=== PATIENT | female | born 1985 | race Asian ===

== ENCOUNTER 2016-11-25 07:25 | Inpatient (IN) | payer OTHER ==
[2016-11-25] MEDS ORDERED: ELECTROLYTE-148 SOLN 500 ML IV ONE (07:45)
[2016-11-25 08:15] VITALS: BMI 25.4
[2016-11-25] MEDS ORDERED: CITRIC ACID/SODIUM CITRATE 30 ML UNIT-DOSE CUP PO ONE (08:19)
[2016-11-25] MEDS ORDERED: PROPOFOL 20 ML ONE (08:27)
[2016-11-25] MEDS ORDERED: ePHEDrine SULFATE 50 MG/1 ML AMPULE ONE (08:27)
[2016-11-25] MEDS ORDERED: SUCCINYLCHOLINE CHLORIDE 200 MG/10 ML VIAL ONE (08:27)
--- NOTE | 2016-11-25 08:28 | HP ---
Past Medical History - Primary Care Physician PCP:: Carolynn aJcobs - Admission Chief Complaint: 31 yrs , 39 weeks , previous c/section , , requests for repeat c/section History of Present Illness: [facility] , uneventful. Work Up : B Pos, , Rpr nr, Hbsag neg, Rubella pos, Hgb A1A2, sickle neg , HIV neg, , GBs neg, 1 Hr GTT 117, Pap NILM .Quantiferon neg NT screen neg, Modified Sequential neg. Serila grwoth sono were done by MFM reviewed History Source: Patient, Medical Record Limitations to Obtaining History: No Limitations - Past Medical History BASKETBALL ASSEMBLER: No: CVA, Migraine, Seizure Cardiovascular: No: GA Pulmonary: No: Asthma Gastrointestinal: Yes: Constipation Renal/: No: UTI ...: 3 ...Para: 1 ...Term: 1 (12/27/2014 primary LFTC/section 40.2 wks wks ) ...: 0 ...Spon : 1 (07/2015 ) ...Induced : 0 ...Multiple Gestation: 0 ...LMP: 02/26/16 ... Weeks Gestation by Dates: 39.0 ...EDC by Dates: 12/02/16 ...EDC by Sono: 12/02/16 Heme/Onc: Yes: Anemia Infectious Disease: No: HIV, MRSA, STD's Psych: No: Addictions, Anxiety, Bipolar, Depression, Panic - Past Surgical History Past Surgical History: Yes: (12/27/14 primary c/s) Hx Myomectomy: No Hx Transabdominal Cerclage: No - Smoking History Smoking history: Never smoked Have you smoked in the past 12 months: No - Alcohol/Substance Use Hx Alcohol Use: No History of Substance Use: reports: None - Social History History of Recent Travel: No Home Medications - Allergies Allergies/Adverse Reactions: Allergies Allergy/AdvReac Type Severity Reaction Status Date / Time No Known Allergies Allergy Verified 11/25/16 08:17 - Home Medications Home Medications: Ambulatory Orders Ferrous Sulfate [Feosol] 325 mg PO DAILY 11/25/16 Vitamins (Sjr) - 1 tab PO DAILY 11/25/16 Physical Exam - Maternity Vital Signs: Vital Signs Temperature 97.8 F 11/25/16 08:12 Pulse Rate 94 H 11/25/16 08:12 Respiratory Rate 20 11/25/16 08:12 Blood Pressure 113/68 11/25/16 08:12 O2 Sat by Pulse Oximetry (%) Constitutional: Yes: Well Nourished, No Distress Eyes: Yes: WNL HENT: Yes: WNL, Normocephalic Neck: Yes: WNL Cardiovascular: Yes: WNL, Regular Rate and Rhythm Lungs: Clear to auscultation Breast(s): Yes: Other (not examined) - Abdominal Exam/OB Fundal Height: 38 Number of Fetuses: Single Presentation: Vertex Regularity: Irregular Intensity: Unaware Monitor Mode: External Heart Rate (range): 130-140 Heart Rate Location: [facility] Category: I Accelerations: Uniform Decelerations: None - Vaginal Exam/OB Vaginal Bleediing: No Dilatation (cm): close Effacement (%): unefface Amniotic Membrane Status: Intact Presentation: Vertex/Position Station: -3 - Physical Exam Musculoskeletal: Yes: WNL Extremities: Yes: WNL. No: Calf Tenderness Edema: Yes Edema: LLE: 1+, RLE: 1+ Deep Tendon Reflex Grade: Normal +2 ...Motor Strength: WNL Psychiatric: Yes: WNL, Alert, Oriented - Labs Lab Results: Laboratory Tests 06/29/15 11/23/16 11/23/16 16:40 08:10 08:10 WBC 6.7 D Hgb 12.4 Hct 36.5 Plt Count 198 D Neutrophils % 67.5 Lymphocytes % 26.2 Monocytes % 5.6 Eosinophils % 0.6 D Basophils % 0.1 INR Sodium Potassium Chloride Carbon Dioxide BUN Creatinine Random Glucose Calcium Total Bilirubin AST ALT Urine Protein Negative Urine Ketones Negative Urine Nitrite Negative Ur Leukocyte Esterase 1+ H Urine RBC 1 Urine WBC 3 Ur Epithelial Cells Moderate Urine Bacteria Rare RPR Titer 11/23/16 11/23/16 11/23/16 08:10 08:10 08:10 WBC Hgb Hct Plt Count Neutrophils % Lymphocytes % Monocytes % Eosinophils % Basophils % INR 0.83 L Sodium 139 Potassium 4.2 Chloride 105 Carbon Dioxide 23 BUN 8 Creatinine 0.5 L D Random Glucose 72 L Calcium 8.1 L Total Bilirubin 0.2 AST 20 D ALT 25 Urine Protein Urine Ketones Urine Nitrite Ur Leukocyte Esterase Urine RBC Urine WBC Ur Epithelial Cells Urine Bacteria RPR Titer Nonreactive Problem List - Problems (1) with 39 completed weeks gestation Code(s): Z3A.39 - 39 WEEKS GESTATION OF (2) Previous section Code(s): Z98.891 - HISTORY OF UTERINE SCAR FROM PREVIOUS SURGERY Assessment/Plan 31 yrs , previous c/section , requests for Repeat c/section
[2016-11-25] MEDS ORDERED: ELECTROLYTE-148 SOLN 1,000 ML IV SCH (08:30)
[2016-11-25] MEDS ORDERED: morphine SULFATE/Preservative Free 0.5 MG/ML (1cc Syringe) SPIN ONE (09:10)
--- NOTE | 2016-11-25 09:43 | CONSULT ---
- Maternal History Mother's Age: 32 Status: 3 Mother's Blood Type: B +VE HBSAG: Negative Date: 04/16/16 RPR: Negative Date: 04/16/16 Group B Strep: Negative HIV: Negative [place] Data - Admission Admission Time: 07:25 Date of Delivery: 11/25/16 Wks Gestation by Dates: 39.0 Wks Gestation by Sono: 39.0 Infant Gender: Male Type of Delivery: Repeat C/S Score @1 Minute: 9 score @ 5 Minutes: 9 Level 2, History and Physical - Vital Signs: Vital Signs Temperature 97.8 F 11/25/16 08:12 Pulse Rate 94 H 11/25/16 08:12 Respiratory Rate 20 11/25/16 08:12 Blood Pressure 113/68 11/25/16 08:12 O2 Sat by Pulse Oximetry (%) General Appearance: Yes: No Abnormalities, Well flexed, Full ROM, Spontaneous movements, [place] Skin: Yes: No Abnormalities Head: Yes: No Abnormalities Eyes: Yes: No Abnormalities Ears: Yes: No Abnormalities Nose: Yes: No Abnormalities Mouth: Yes: No Abnormalities Chest: Yes: No Abnormalities Lungs/Respiratory: Yes: No Abnormalities, Bilateral good air entry Cardiac: Yes: No Abnormalities Abdomen: Yes: No Abnormalities, Umb Ves, 2 artery 1 vein Gastrointestinal: Yes: No Abnormalities Genitalia: No Abnormalities Anus: Yes: No Abnormalities Extremities: Yes: No Abnormalities Femoral Pulse: Strong Spine: Yes: No Abnormalities Neuro: Yes: No Abnormalities Cry: Yes: Strong Assessment/Plan Attended Rpt C/s at the request of OB PNL- nl , GBS- neg Infant cried soon after suctioned/ dried cord 3V score 9/9 RNBC Watch for resp distress
[2016-11-25] MEDS ORDERED: IBUPROFEN 800 MG/8 ML IJ IVPB PRN (10:04)
[2016-11-25] MEDS ORDERED: METHYLERGONOVINE MALEATE 0.2 MG/1 ML AMP IM PRN (10:04)
[2016-11-25] MEDS ORDERED: ONDANSETRON 4 MG/2 ML VIAL IVPB PRN (10:13)
--- NOTE | 2016-11-25 10:14 | PN ---
Delivery - Delivery Section: Repeat, Low Flap Transverse (39 week, previous c/s, requests for c/s) Type of Anesthesia: Spinal Episiotomy/Laceration: None EBL (cc): 500 (solo out put 100 ml mone color ) Delivery, Single - Stages of Labor Date of Delivery: 11/25/16 Time of Delivery: 09:24 Time Placenta Delivered: 09:25 Placenta: Yes: Manual Removal, Uterine Exploration - Condition of Infant Procedure Tech/Radiology Equipment Servicer Present: Yes Name: Tino Maddox Infant Gender: Male Weight: 7 lb 11 oz Position: Right, OT Total Hours ROM (Hrs/Mins): 0hrs 2min - 1 Minute Total Score: 9 5 Minutes Total Score: 9 - Reader Feeding Plan Initial Plan: Exclusive throughout hospitalization Remarks - Remarks Remarks: 31 yrs , . 39 weeks, previous c/s, requests , repeat c/s PNC at [address] [place] [address] GBS neg. course uneventful. Intraop course uneventful.
--- NOTE | 2016-11-25 10:18 | OP ---
Operative Note - Note: Operative Date: 11/25/16 Pre-Operative Diagnosis: 39 weeks, previous c/s, requests for repeat c/s Operation: Repeat LFTC/Section Findings: 9.24 am, Baby Boy, Vx ROT position , 9/9, Wt 7'11" Both Tubes & ovaries normal . Dr Maddox present in the OR Surgeon: Carolynn Jacobs Bolt Header: Elie Ojeda Anesthesiologist/DOCTOR PODIATRIC MEDICINE: Jacky Norris Anesthesia: Spinal Specimens Removed: placenta. cord blood Estimated Blood Loss (mls): 500 Drains, Volume Out (mls): 100 (mone color , solo out put ) Fluid Volume Replaced (mls): 2,000 (IV Ancef 1 gm ivpb ) Operative Report Dictated: Yes
[2016-11-25] MEDS: D5W-LR W/ 20 UNITS OXYTOCIN 1,000 ML IV SCH ×2 (11:30→17:44)
--- NOTE | 2016-11-25 16:21 | OP ---
DATE OF OPERATION: 11/25/2016 PREOPERATIVE DIAGNOSIS: A 39 weeks , previous section, request for repeat section. OPERATION DONE: Repeat low flap transverse section. SURGEON: Carolynn Jacobs MD CUSTOMER COMPLAINT SERVICE SUPERVISOR: SHANNON Vogel ANESTHESIOLOGIST: Jacky Norris MD ANESTHESIA: Spinal. FINDINGS: This is a 31-year-old, 3, para 1-0-1-1, with 39 weeks , admitted for a repeat section. She was not in labor but she was mague. Her cervix was closed. PROCEDURE: Patient was taken to the operating room table and abdomen was shaved. Toscano catheter was placed. Spinal anesthesia was given. She was placed in the supine position. Abdomen was painted and draped in the usual manner. Pfannenstiel incision was made through the previous scar, skin and subcutaneous tissue, anterior rectus sheath was incised transversely. Bleeding points were clamped and cauterized. Rectus muscle was from the rectus sheath. Parietal peritoneum was opened vertically. Lower flap bladder peritoneum was incised transversely. Bladder was pushed down. Lower uterine segment was isolated and it was thin. Incision was made in lower uterine segment and incised transversely and amniotic fluid was clear. Baby was delivered from ROT position at 9:24 a.m. The baby's was 9/9, baby boy. Weight was 7.11 ounces. Cord was clamped, cut, cord blood was collected. Dr. Maddox, the drill press operator numerical control, was present in the operating room. Placenta was removed completely with the membranes and then uterine incision was closed in 2 layers, first layer was a continuous locking with a Biosyn 0 suture, second was closed with a Biosyn 0 suture continuous suture and vertical mattress sutures were taken. Bladder peritoneum also was closed with Biosyn 0 suture. Hemostasis was verified. Both tube and ovary were normal. Irrigation was done. Sponge, instrument, needle count was correct. Then closure of the abdomen was done. Parietal peritoneum was closed with Vicryl O suture. Muscles were approximated together with interrupted Vicryl 0 sutures. Anterior rectus sheath was closed with Vicryl 0 suture. Before that, the flaps of the anterior rectus sheath were checked for hemostasis. Subcutaneous tissue was mobilized from the skin and hemostasis was achieved. A few interrupted sutures were taken in the subcutaneous tissue with a Vicryl 0 suture. The skin was approximated with jf. Patient tolerated the procedure well. Then she was transferred to the recovery room in stable condition. Estimated blood loss was 500 mL. Urine output was 100 mL, mone colored, intraoperatively. She received 1 g of IV Ancef prior to the incision. Blood clots were removed from the vagina prior to moving her to the recovery room. Jovon MENDEZ/[id number] MTDD
[2016-11-25] MEDS: CEFAZOLIN (PRE-DOCKED) 50 ML IVPB SCH (17:43)
[2016-11-26] MEDS: CEFAZOLIN (PRE-DOCKED) 50 ML IVPB SCH ×2 (01:14→09:01)
[2016-11-26] MEDS: D5W-LR W/ 20 UNITS OXYTOCIN 1,000 ML IV SCH ×2 (04:28→18:56)
[2016-11-26] MEDS: SIMETHICONE 80 MG TAB.CHEW (FP) PO PRN ×3 (07:49→21:43)
[2016-11-26] MEDS: ACETAMINOPHEN 325 MG TABLET (FP) PO PRN ×3 (07:49→21:44)
[2016-11-26] MEDS: IBUPROFEN 600 MG TABLET (FP) PO PRN ×3 (07:52→21:43)
--- NOTE | 2016-11-26 08:21 | PN ---
Progress Note (short form) - Note Progress Note: pod 1 doing well, has mild low abdominal pain Last Vital Signs Temp Pulse Resp BP Pulse Ox 97.6 F 73 20 114/72 100 11/26/16 05:24 11/26/16 05:24 11/26/16 08:00 11/26/16 05:24 11/25/16 11:00 abdomen soft, no distension, no cva incision dry, clean no calf tenderness plan ambulate, cbc advance diet
[2016-11-26 08:51] LABS: BASOPHIL 0.1 % (0-2.0); EOSINOPHIL 0.4 % (0-4.5); MCH 30.8 pg (25.7-33.7); MCHC 33.6 g/dl (32.0-36.0); MEAN CELL VOLUME 91.7 fl (80-96); MEAN PLT VOLUME 8.7 fl (7.5-11.1); NEUTROPHILS 80.1 % (42.8-82.8); PLATELET COUNT 196 K/MM3 (134-434); WHITE BLOOD COUNT 9.2 K/mm3 (4.0-10.0)
[2016-11-26] MEDS: PRENATAL VITAMINS W/ FOLIC ACID TABLET (FP) PO SCH (09:01)
[2016-11-26] MEDS: ENOXAPARIN NA (PORCINE) 40 MG/0.4 ML DISP.SYRIN SQ SCH (09:02)
--- NOTE | 2016-11-26 09:14 | PN ---
Progress Note, Physician Chief Complaint: s/p c section History of Present Illness: under spinal anesthesia post op day one - Current Medication List Current Medications: Active Medications Acetaminophen (Tylenol -) 650 mg PO Q4H PRN PRN Reason: FEVER OR PAIN Last Admin: 11/26/16 07:49 Dose: 650 mg Bisacodyl (Dulcolax Suppository -) 10 mg RC PRN PRN PRN Reason: CONSTIPATION Diphenhydramine HCl (Benadryl Injection -) 25 mg IVPUSH Q4H PRN PRN Reason: Pruritis Last Admin: 11/25/16 16:34 Dose: 25 mg Enoxaparin Sodium (Lovenox -) 40 mg SQ DAILY SHIVA Last Admin: 11/26/16 09:02 Dose: 40 mg Ferrous Sulfate (Feosol -) 325 mg PO BID [facility] Cefazolin Sodium (Ancef 1gm Ivpb (Pre-Docked)) 50 mls @ 100 mls/hr IVPB Q8H-IV SHIVA Stop: 11/26/16 10:29 Last Admin: 11/26/16 09:01 Dose: 100 mls/hr Dextrose/Lactated Ringer's (Pitocin 20 Units In D5-Lr -) 1,000 mls @ 125 mls/ hr IV ASDIR SHIVA Last Admin: 11/26/16 04:28 Dose: 125 mls/hr Ibuprofen (Motrin -) 600 mg PO Q4H PRN PRN Reason: PAIN Last Admin: 11/26/16 07:52 Dose: 600 mg Ibuprofen (Caldolor Injection -) 800 mg IVPB Q8H PRN PRN Reason: PAIN OR FEVER Last Admin: 11/26/16 02:01 Dose: 800 mg Methylergonovine Maleate (Methergine Injection -) 0.2 mg IM Q4H PRN PRN Reason: Excessive Bleeding (L&D) Oxycodone HCl (Roxicodone -) 5 mg PO Q4H PRN PRN Reason: PAIN LEVEL 1-5 Oxycodone HCl (Roxicodone -) 10 mg PO Q4H PRN PRN Reason: PAIN LEVEL 6-10 Multivit/Folic Acid/Iron ( Vitamins (Sjr) -) 1 tab PO DAILY SHIVA Last Admin: 11/26/16 09:01 Dose: 1 tab Senna/Docusate Sodium (Pericolace -) 2 tablet PO HS PRN PRN Reason: CONSTIPATION Simethicone (Mylicon -) 80 mg PO Q4H PRN PRN Reason: GAS Last Admin: 11/26/16 07:49 Dose: 80 mg - Objective Vital Signs: Vital Signs Temperature 97.9 F 11/26/16 08:22 Pulse Rate 67 11/26/16 08:22 Respiratory Rate 20 11/26/16 08:22 Blood Pressure 113/55 11/26/16 08:22 O2 Sat by Pulse Oximetry (%) 100 11/25/16 11:00 Constitutional: Yes: Well Nourished Cardiovascular: Yes: WNL Respiratory: Yes: WNL Gastrointestinal: Yes: WNL Neurological: Yes: WNL Labs: CBC, BMP 11/26/16 07:55 Assessment/Plan NO adverse effect of the anesthetic, no headache, backache, nausea or vomiting. Dept of anesthesia will sign off care at this time
[2016-11-26] MEDS ORDERED: BISACODYL 10 MG SUPP.RECT RC PRN (10:04)
[2016-11-26] MEDS: FERROUS SO4 325 MG TABLET (FP) PO SCH (21:43)
[2016-11-26] MEDS: oxyCODONE HCL 5 MG TABLET PO PRN (21:43)
[2016-11-26] MEDS: SENNOSIDES/DOCUSATE COMBO (SENNA PLUS) TABLET (UD) PO PRN (21:44)
[2016-11-27] MEDS: ACETAMINOPHEN 325 MG TABLET (FP) PO PRN ×4 (07:06→21:08)
[2016-11-27] MEDS: SIMETHICONE 80 MG TAB.CHEW (FP) PO PRN ×2 (07:06→15:56)
[2016-11-27] MEDS: oxyCODONE HCL 5 MG TABLET PO PRN ×3 (07:07→15:57)
--- NOTE | 2016-11-27 09:18 | PN ---
Progress Note (short form) - Note Progress Note: pod 2 , doing well, ambulating CBC, BMP 11/26/16 07:55 Last Vital Signs Temp Pulse Resp BP Pulse Ox 97.6 F 65 18 107/70 100 11/27/16 09:11 11/27/16 09:11 11/27/16 09:11 11/27/16 09:11 11/25/16 11:00 abdomen soft, no distension, no cva incision dry, healing well no calf tenderness impression pod 2 tolorating diet, ambulating plan cont post op care. cbc in am
[2016-11-27] MEDS: FERROUS SO4 325 MG TABLET (FP) PO SCH ×2 (11:22→21:08)
[2016-11-27] MEDS: PRENATAL VITAMINS W/ FOLIC ACID TABLET (FP) PO SCH (11:22)
[2016-11-27] MEDS: ENOXAPARIN NA (PORCINE) 40 MG/0.4 ML DISP.SYRIN SQ SCH (11:22)
[2016-11-27] MEDS: IBUPROFEN 600 MG TABLET (FP) PO PRN ×2 (15:58→21:10)
--- NOTE | 2016-11-27 16:46 | PN ---
Post Progress Note - Subjective Subjective: c/o pain scale -8 voiding without difficulty Post Day: 2 Type of Delivery: Repeat C/S Vital Signs: Vital Signs Temperature 97.6 F 11/27/16 09:11 Pulse Rate 65 11/27/16 09:11 Respiratory Rate 18 11/27/16 09:11 Blood Pressure 107/70 11/27/16 09:11 O2 Sat by Pulse Oximetry (%) 100 11/25/16 11:00 Breast Exam: Yes: Soft, Other (BF ). No: Engorged Uterus: Yes: Fundus Firm, Fundus below umbilicus Incision: Yes: [place] intact. No: Redness, Oozing Abdomen/GI: Yes: Abdomen soft, Passing flatus (bn not done ), Tolerating PO ( diet ). No: Abdominal Distention, Tender Lochia: Yes: Rubra Lochia, amount: Moderate Extremities: Yes: Calves non-tender Perineum: Yes: Intact Activity: Ambulating - Labs Labs: CBC WBC 9.2 K/mm3 (4.0-10.0) D 11/26/16 07:55 RBC 3.76 M/mm3 (3.60-5.2) 11/26/16 07:55 Hgb 11.6 GM/dL (10.7-15.3) 11/26/16 07:55 Hct 34.5 % (32.4-45.2) 11/26/16 07:55 MCV 91.7 fl (80-96) 11/26/16 07:55 MCHC 33.6 g/dl (32.0-36.0) 11/26/16 07:55 RDW 13.0 % (11.6-15.6) 11/26/16 07:55 Plt Count 196 K/MM3 (134-434) 11/26/16 07:55 MPV 8.7 fl (7.5-11.1) 11/26/16 07:55 Neutrophils % 80.1 % (42.8-82.8) 11/26/16 07:55 Lymphocytes % 15.9 % (8-40) D 11/26/16 07:55 Monocytes % 3.5 % (3.8-10.2) L 11/26/16 07:55 Eosinophils % 0.4 % (0-4.5) 11/26/16 07:55 Basophils % 0.1 % (0-2.0) 11/26/16 07:55 Problem List - Problems (1) with 39 completed weeks gestation Code(s): Z3A.39 - 39 WEEKS GESTATION OF (2) Previous section Code(s): Z98.891 - HISTORY OF UTERINE SCAR FROM PREVIOUS SURGERY Assessment/Plan stable plan ct po care
[2016-11-27] MEDS: SENNOSIDES/DOCUSATE COMBO (SENNA PLUS) TABLET (UD) PO PRN (21:11)
[2016-11-28] MEDS: IBUPROFEN 600 MG TABLET (FP) PO PRN ×4 (03:27→21:10)
[2016-11-28] MEDS: SIMETHICONE 80 MG TAB.CHEW (FP) PO PRN ×4 (03:27→21:09)
[2016-11-28] MEDS: ACETAMINOPHEN 325 MG TABLET (FP) PO PRN ×4 (03:28→21:10)
[2016-11-28 08:21] LABS: BASOPHIL 0.2 % (0-2.0); EOSINOPHIL 2.3 % (0-4.5); MCH 30.7 pg (25.7-33.7); MCHC 33.5 g/dl (32.0-36.0); MEAN CELL VOLUME 91.5 fl (80-96); MEAN PLT VOLUME 8.2 fl (7.5-11.1); NEUTROPHILS 69.1 % (42.8-82.8); PLATELET COUNT 220 K/MM3 (134-434); RDW 13.2 % (11.6-15.6)
--- NOTE | 2016-11-28 09:59 | PN ---
Post Progress Note - Subjective Subjective: complains of pain scale 5-6/10 Post Day: 3 Type of Delivery: Repeat C/S Vital Signs: Vital Signs Temperature 97.9 F 11/27/16 22:00 Pulse Rate 87 11/27/16 22:00 Respiratory Rate 18 11/27/16 22:00 Blood Pressure 118/69 11/27/16 22:00 O2 Sat by Pulse Oximetry (%) 100 11/25/16 11:00 Breast Exam: Yes: Soft, Other (bf& bottle feeding ). No: Engorged Uterus: Yes: Fundus Firm, Fundus below umbilicus Incision: Yes: [place] intact. No: Redness, Oozing Abdomen/GI: Yes: Abdomen soft, Passing flatus, Tolerating PO (done ). No: Abdominal Distention, Tender Lochia: Yes: Rubra Lochia, amount: Moderate Extremities: Yes: Calves non-tender Perineum: Yes: Intact Activity: Ambulating - Labs Labs: CBC WBC 6.0 K/mm3 (4.0-10.0) D 11/28/16 07:30 RBC 3.72 M/mm3 (3.60-5.2) 11/28/16 07:30 Hgb 11.4 GM/dL (10.7-15.3) 11/28/16 07:30 Hct 34.1 % (32.4-45.2) 11/28/16 07:30 MCV 91.5 fl (80-96) 11/28/16 07:30 MCHC 33.5 g/dl (32.0-36.0) 11/28/16 07:30 RDW 13.2 % (11.6-15.6) 11/28/16 07:30 Plt Count 220 K/MM3 (134-434) 11/28/16 07:30 MPV 8.2 fl (7.5-11.1) 11/28/16 07:30 Neutrophils % 69.1 % (42.8-82.8) 11/28/16 07:30 Lymphocytes % 22.6 % (8-40) D 11/28/16 07:30 Monocytes % 5.8 % (3.8-10.2) 11/28/16 07:30 Eosinophils % 2.3 % (0-4.5) D 11/28/16 07:30 Basophils % 0.2 % (0-2.0) 11/28/16 07:30 Problem List - Problems (1) with 39 completed weeks gestation Code(s): Z3A.39 - 39 WEEKS GESTATION OF (2) Previous section Code(s): Z98.891 - HISTORY OF UTERINE SCAR FROM PREVIOUS SURGERY Assessment/Plan stable. plan ct po care. remove jf tomorrow, & discharge tomorrow.
[2016-11-28] MEDS: FERROUS SO4 325 MG TABLET (FP) PO SCH ×2 (10:32→21:10)
[2016-11-28] MEDS: PRENATAL VITAMINS W/ FOLIC ACID TABLET (FP) PO SCH (10:32)
[2016-11-28] MEDS: ENOXAPARIN NA (PORCINE) 40 MG/0.4 ML DISP.SYRIN SQ SCH (10:32)
[2016-11-29] MEDS: IBUPROFEN 600 MG TABLET (FP) PO PRN ×2 (06:33→10:46)
[2016-11-29] MEDS: ACETAMINOPHEN 325 MG TABLET (FP) PO PRN ×2 (06:34→10:47)
[2016-11-29] MEDS: SIMETHICONE 80 MG TAB.CHEW (FP) PO PRN ×2 (06:34→10:47)
--- NOTE | 2016-11-29 07:00 | PN ---
Post Progress Note Post Day: 4 Type of Delivery: Repeat C/S Vital Signs: Vital Signs Temperature 97.8 F 11/28/16 21:45 Pulse Rate 77 11/28/16 21:45 Respiratory Rate 18 11/28/16 21:45 Blood Pressure 123/53 11/28/16 21:45 O2 Sat by Pulse Oximetry (%) 100 11/25/16 11:00 Breast Exam: Yes: Soft Uterus: Yes: Fundus Firm Incision: Yes: [place] intact Abdomen/GI: Yes: Abdomen soft Lochia: Yes: Rubra Lochia, amount: Small Extremities: Yes: Calves non-tender Perineum: Yes: Intact (jf removed) - Labs Labs: CBC WBC 6.0 K/mm3 (4.0-10.0) D 11/28/16 07:30 RBC 3.72 M/mm3 (3.60-5.2) 11/28/16 07:30 Hgb 11.4 GM/dL (10.7-15.3) 11/28/16 07:30 Hct 34.1 % (32.4-45.2) 11/28/16 07:30 MCV 91.5 fl (80-96) 11/28/16 07:30 MCHC 33.5 g/dl (32.0-36.0) 11/28/16 07:30 RDW 13.2 % (11.6-15.6) 11/28/16 07:30 Plt Count 220 K/MM3 (134-434) 11/28/16 07:30 MPV 8.2 fl (7.5-11.1) 11/28/16 07:30 Neutrophils % 69.1 % (42.8-82.8) 11/28/16 07:30 Lymphocytes % 22.6 % (8-40) D 11/28/16 07:30 Monocytes % 5.8 % (3.8-10.2) 11/28/16 07:30 Eosinophils % 2.3 % (0-4.5) D 11/28/16 07:30 Basophils % 0.2 % (0-2.0) 11/28/16 07:30 Assessment/Plan dc home jf removed
[2016-11-29 07:49] VITALS: BP 113/70; PULSE 51; TEMP 98
--- NOTE | 2016-11-29 10:19 | DS ---
Physical Exam-DIRECTOR OF ANESTHESIA SERVICES Vital Signs: Vital Signs Temperature 98.0 F 11/29/16 07:20 Pulse Rate 51 L 11/29/16 07:20 Respiratory Rate 20 11/29/16 07:20 Blood Pressure 113/70 11/29/16 07:20 O2 Sat by Pulse Oximetry (%) 100 11/25/16 11:00 Constitutional: Yes: Well Nourished Eyes: Yes: WNL HENT: Yes: WNL Neck: Yes: WNL Cardiovascular: Yes: WNL Respiratory: Yes: WNL Gastrointestinal: Yes: WNL, Normal Bowel Sounds, Soft, Other (bm done). No: Distention Renal/: Yes: WNL, Other (voiding without difficulty) ....Post : Yes: Uterus firm, Uterus non-tender, Moderate lochia rubra Breast(s): Yes: WNL (BF & Bottle feeding) Musculoskeletal: Yes: WNL Extremities: Yes: WNL. No: Calf Tenderness Edema: Yes Edema: LLE: 1+, RLE: 1+ Wound/Incision: Yes: Clean/Dry, Well Approximated, Steri Strips, [place] Removed. No: Draining, Reddened, Bleeding Neurological: Yes: WNL, Alert, Oriented ...Motor Strength: WNL Psychiatric: Yes: WNL, Alert, Oriented Labs: CBC, BMP 11/28/16 07:30 Delivery - Delivery Section: Repeat, Low Flap Transverse (39 week, previous c/s, requests for c/s) Type of Anesthesia: Spinal Episiotomy/Laceration: None EBL (cc): 500 (solo out put 100 ml mone color ) Delivery, Single - Stages of Labor Date of Delivery: 11/25/16 Time of Delivery: 09:24 Time Placenta Delivered: 09:25 Placenta: Yes: Manual Removal, Uterine Exploration - Condition of Infant Inspector Optical Instrument/Hand Tool Lapper Present: Yes Name: Tino Maddox Infant Gender: Male Weight: 7 lb 11 oz Position: Right, OT Total Hours ROM (Hrs/Mins): 0hrs 2min - 1 Minute Total Score: 9 5 Minutes Total Score: 9 - [place] Feeding Plan Initial Plan: Exclusive throughout hospitalization Remarks - Remarks Remarks: 31 yrs , . 39 weeks, previous c/s, requests , repeat c/s PNC at [address] [place] [address] GBS neg. course uneventful. Intraop course uneventful. post op course uneventful. discharged 11/29/16 Discharge Summary Reason For Visit: Current Active Problems Delivery by (planned) section occurring after 37 completed weeks of gestation but before 39 completed weeks gestation due to (spontaneous) onset of labor, with mention of complication (Acute) with 39 completed weeks gestation (Acute) Previous section (Acute) Condition: Stable - Instructions Diet, Activity, Other Instructions: Post Instructions DIET: Continue good diet high in protein, calcium, and iron rich foods. Drink at least eight (8) glasses of water daily in addition to other fluids. ct Regular diet MEDICATIONS: Continue vitamins and iron as previously directed. Motrin and Tylenol may be taken for minor discomfort. ACTIVITY: Mild to moderate exercise may be started in two (2) weeks. Take frequent rest periods. Resume normal activity after six (6) week check up. WOUND CARE OF OPERATIVE SITE: Continue use of perineal bottle until vaginal discharge stops. Keep area clean. Shower daily. Keep abdominal wound dry. Report any drainage or redness to physician. Tub baths, tampons and douches are not permitted for [address] Breast feeding & or Bottle feeding BREAST CARE: (For those that are not breast feeding): If engorgement occurs: Wear tight fitting bra. Take Tylenol or Motrin for pain. Apply cold packs (ice in bags to each breast ) FAMILY PLANNING: There are many control alternatives to pursue and they should be discussed at your first office visit. You may resume sexual activity after your six (6) week check up. (Remember, breast feeding is not a contraceptive) NEXT PHYSICIAN APPOINTMENT: Be certain to call for a one (1) week appointment, unless otherwise directed. Call Clinic or got to Emergency Dept if you have any of the following: Heavy vaginal bleeding Painful urination Leg pain Unusual odor noted to vaginal bleeding High fever Red streaking noted on breast Referrals: Carolynn Jacobs MD [Staff Physician] - Disposition: HOME - Home Medications Comprehensive Discharge Medication List: Ambulatory Orders Vitamins (Sjr) - 1 tab PO DAILY 11/25/16 Acetaminophen [Tylenol .Regular Strength -] 650 mg PO Q4H PRN #0 tablet Ferrous Sulfate [Feosol] 325 mg PO DAILY #0 tab 11/27/16 Ibuprofen [Motrin -] 600 mg PO Q4H PRN #30 tablet 11/27/16 Vitamins (Sjr) - 1 tab PO DAILY tablet 11/27/16
[2016-11-29] MEDS: ENOXAPARIN NA (PORCINE) 40 MG/0.4 ML DISP.SYRIN SQ SCH (10:20)
[2016-11-29] MEDS: FERROUS SO4 325 MG TABLET (FP) PO SCH (10:20)
[2016-11-29] MEDS: PRENATAL VITAMINS W/ FOLIC ACID TABLET (FP) PO SCH (10:20)
--- NOTE | 2016-11-30 13:27 | PATH ---
Surgical Pathology Report Patient Name: SRAVANI ERIC Med. Rec. #: [id number] /Age/Gender: 1985 (Age: 31) / F Account: [id number] Location: [facility] OBS/CAN PILER Taken: 11/25/2016 Received: 11/26/2016 Reported: 11/30/2016 Physicians: Carolynn Jacobs M.D. Specimen(s) Received PLACENTA Clinical History Repeat c/section Final Diagnosis PLACENTA, DELIVERY: FOCALLY DISRUPTED THIRD TRIMESTER PLACENTA WITH MILD PREVILLOUS, PERIVILLOUS, AND PRECHORIONIC FIBRIN DEPOSITION, THREE VESSEL UMBILICAL CORD, AND PLACENTAL MEMBRANES WITH FOCAL AMNION HYPERPLASIA. Electronically Signed Javid Landa M.D. Gross Description The specimen is received fresh, labeled "placenta" and is a 479 gram, 21.0 x 15.5 x 1.5 cm placenta with attached membranes and umbilical cord. The attached membranes are yanez, translucent with focal opacities and insert marginally. The umbilical cord measures 25 cm in length and averages 1.3 cm in diameter. The cord inserts eccentrically, 5 cm to the nearest margin. No true knots or strictures are identified. Cut surface of the umbilical cord reveals 3 vessels. The surface is pal-blue with fibrin deposition and appropriate caliber vessels. The maternal surface is red-brown with focal defects. Sectioning reveals red-brown, spongy parenchyma. No focal lesions are identified. Power Lineman Technician sections are submitted in three cassettes as follows: 1- membrane rolls and umbilical cord; 2-3- full thickness sections of placenta. 11/29/201611/29/2016
== END 2016-11-29 12:45 | disposition home or self-care (01) | DRG 540 ==
LOC: JLDR 07:25 → J3W 11:40
PROVIDERS: ADMIT Obstetrics & Gynecology; ATTEND Obstetrics & Gynecology
PROC: 10D00Z1 Extraction of Products of Conception, Low, Open Approach (ICD-10-PCS; principal; 2016-11-25)
DX: O34.211 Maternal care for low transverse scar from previous cesarean delivery (principal); Z3A.39 39 weeks gestation of pregnancy; Z37.0 Single live birth
CPT/HCPCS: 36415; 85025; 88307-TC

== ENCOUNTER 2018-10-03 09:42 | Emergency (ER) | payer OTHER ==
[2018-10-03 09:49] VITALS: BMI 22.3
--- NOTE | 2018-10-03 10:33 | PDOC ---
History of Present Illness - General Chief Complaint: Syncope/Near Syncope Stated Complaint: SYNCOPE Time Seen by Provider: 10/03/18 09:49 History Source: Patient, Old Records Exam Limitations: No Limitations - History of Present Illness Initial Comments: HPI: 33 y/o female presenting to [facility] ER from outpatient diagnostic imaging. Pt was undergoing routine blood and ultrasound testing when she experienced a syncopal episode, which was witnessed by the strain technician. No trauma reported. A rapid response was called. This provider responded. The pt was found alert and oriented laying in the prone position on the floor. She was able to stand and transition to a wheelchair with assistance. In the emergency department, the pt reported feeling lightheaded just after the strain technician janusz blood. Now feeling better but experiencing mild generalized headache. Endorses nausea and vomiting over the entire duration of the , but able to tolerate some PO. Similar symptoms with past pregnancies. Denies fevers, chills, or diaphoresis. Denies h/o similar symptoms. Denies vaginal bleeding or spotting. OBGYN Hx: GA 12 weeks by LMP, (08 Jul 2018) A1, demise at 3 months No H/o STD OBGYN: Dr. Jacobs Past History - Past Medical History Allergies/Adverse Reactions: Allergies Allergy/AdvReac Type Severity Reaction Status Date / Time No Known Allergies Allergy Verified 10/03/18 09:44 Home Medications: Ambulatory Orders Vitamins (r) - 1 tab PO DAILY tablet 11/27/16 Doxylamine Succinate/Vit B6 [R[place] Pennington 10-10 mg Tablet] 1 each PO ASDIR PRN # 20 tablet. 10/03/18 Asthma: No Cancer: No Cardiac Disorders: No COPD: No Diabetes: No HTN: No Seizures: No Thyroid Disease: No - Reproductive History (#): 2 Para: 1 Cervical CA: No Dysfunctional Uterine Bleeding: No Ectopic : No Endometrial CA: No Polycystic Ovaries: No Therapeutic (s) & number: No Tubal Ligation: No Spontaneous : 0 - Suicide/Smoking/Psychosocial Hx Smoking History: Never smoked Have you smoked in the past 12 months: No Hx Alcohol Use: No Drug/Substance Use Hx: No Substance Use Type: None Hx Substance Use Treatment: No Review of Systems - Review of Systems Able to Perform ROS?: Yes Comments:: In addition to that documented in the HPI above, the additional ROS was obtained : Constitutional: Denies fevers or chills Eyes: Denies vision changes ENMT: Denies sore throat CV: Denies chest pain Resp: Denies SOB GI: Denies vomiting or diarrhea : Denies painful urination MSK: Denies recent trauma Skin: Denies new rashes Neuro: Denies new numbness or tingling or weakness Endocrine: Denies polyuria Heme: Denies bleeding or bruising *Physical Exam - Vital Signs Last Vital Signs Temp Pulse Resp BP Pulse Ox 98.4 F 75 16 137/91 100 10/03/18 09:45 10/03/18 09:45 10/03/18 09:45 10/03/18 09:45 10/03/18 09:45 - Physical Exam Comments: Constitutional: Well-developed, well-nourished female in no acute distress or obvious discomfort. Found sitting semi-fowlers on hospital bed. Alert and oriented x4. Answered all questions appropriately and completely. Speech was non -labored, non-pressured. Head: Normocephalic. No obvious external signs of trauma. Eyes: Pupils 4mm and PERRL bilaterally. EOMI. Sclerae white. Conjunctiva moist and not injected. Ears: Hearing grossly intact. Nose: No nasal discharge. Throat: Oral cavity and pharynx normal. No inflammation, swelling, exudate, or lesions. Neck: Supple, trachea is midline. Cardiovascular / Chest: Regular rate and regular rhythm. No murmur, rubs, clicks, or gallops. Peripheral pulses: radial pulses full. Respiratory: Breathing unlabored. Equal chest rise and fall. Clear to auscultation bilaterally. No stridor, no wheezing, no rhonchi. Gastrointestinal: abdomen is soft, non-tender, non-distended. Neuro: Alert and oriented. Moving all four extremities spontaneously. Upper and lower extremities: proximal and distal strength 5/5. Foot Doctor strength 5/5 - equal and symmetric. Plantar flexion and dorsiflexion 5/5. No nuchal rigidity. Skin: Warm, dry, and intact. No bruising, rashes, or other lesions. : No R or L CVA tenderness. Psych: Affect: appropriate. Mood: normal. Moderate Sedation - Procedure Monitoring Vital Signs: Procedure Monitoring Vital Signs Temperature 98.4 F 10/03/18 09:45 Pulse Rate 75 10/03/18 09:45 Respiratory Rate 16 10/03/18 09:45 Blood Pressure 137/91 10/03/18 09:45 O2 Sat by Pulse Oximetry (%) 100 10/03/18 09:45 ED Treatment Course - LABORATORY CBC & Chemistry Diagram: 10/03/18 11:06 10/03/18 11:06 Medical Decision Making - Medical Decision Making *Reviewed vital signs, nursing notes, and prior visit documentation (if available). 33 y/o female s/p witnessed syncopal episode now complaining of minimal to moderate generalized headache. Episode lasted approx. 1 min. Occurred immediately following blood draw. Reports significant emesis over duration of . No significant recent illness. No significant personal or familial medical history. Afebrile. Vitals unremarkable for hypotension or tachycardia. Normoglycemic. Physical exam as described above. Suspect vasovagal syncope. CBC unremarkable for anemia or leukocytosis. CMP unremarkable for significant electrolyte derangement. Normal renal and hepatic function. EKG revealed a sinus rhythm without ectopy. Given LR IVFB, Reglan, and Benadryl for symptom relief. Will prescribe outpatient course of Diclegis for hyperemesis gravidarum. 12:[address] Jacobs. Verbally appraised of the pts HPI, ED course, and current plan of management including outpatient Diclegis prescription. No additional orders requested. Will set pt on Saturday at clinic. Pt to call office for time. Pt reassessed. Reports her symptoms have improved. Discussed laboratory results with pt. Answered all questions. Provided return precautions. Pt expressed verbal understanding and agreement with plan to discharge home with outpatient follow up. Preferred pharmacy changed. Diclegis prescription re-transmitted. *DC/Admit/Observation/Transfer Diagnosis at time of Disposition: Nausea and vomiting during Syncope Qualifiers: Syncope type: unspecified Qualified Code(s): R55 - Syncope and collapse - Discharge Dispostion Disposition: HOME Condition at time of disposition: Good Decision to Admit order: No - Prescriptions Prescriptions: Doxylamine Succinate/Vit B6 [Dicleah Pennington 10-10 mg Tablet] 1 each PO ASDIR PRN # 20 tablet. PRN Reason: Nausea/Vomiting - Referrals Referrals: Carolynn Jacobs MD [Staff Physician] - - Patient Instructions Printed Discharge Instructions: DI for Syncope in Adults (Fainting), DI for Morning Sickness Additional Instructions: You were seen today after passing out while having blood drawn at your ultrasound appointment. Your blood work as normal. You were given fluids for rehydration. I called Dr. Jacobs and let her know about the episode and your vomiting. She will see you in clinic on Saturday (Oct 07). You need to call the clinic for the appointment time. I have sent a prescription for Diclegis to your pharmacy. This is a medication designed to help with morning sickness. Take 2 tablets at bedtime on day 1 and day 2. If symptoms continue, take 1 tablet in morning and 2 tablets at bedtime on day 3. If symptoms continue, may take 1 tablet in morning, 1 tablet mid-day, and 2 tablets at bedtime. Do not take more than 4 pills per day. Go to the nearest emergency department if your condition worsens or you feel like you need additional emergency evaluation. Print Language: LITHUANIAN - Post Discharge Activity
[2018-10-03] MEDS ORDERED: METOCLOPRAMIDE HCL INJECTION 10 MG/2 ML VIAL IVPUSH ONE (10:52)
[2018-10-03] MEDS ORDERED: LACTATED RINGERS SOLUTION 1000 ML INFUS.BAG IV ONE (10:52)
[2018-10-03] MEDS ORDERED: METOCLOPRAMIDE HCL INJECTION 10 MG/2 ML VIAL ONE (10:57)
[2018-10-03 11:30] LABS: BASO % 0.2 % (0-2.0); EOS % 0.2 % (0-4.5); HEMATOCRIT 36.3 % (32.4-45.2); HEMOGLOBIN 12.6 GM/dL (10.7-15.3); MCH 30.3 pg (25.7-33.7); MCHC 34.6 g/dl (32.0-36.0); MEAN CELL VOLUME 87.7 fl (80-96); MONO % 4.7 % (3.8-10.2); NEUT % 76.9 % (42.8-82.8); PLATELET COUNT 229 K/MM3 (134-434); RBC 4.14 M/mm3 (3.60-5.2); RDW 13.6 % (11.6-15.6)
[2018-10-03 12:01] LABS: ALBUMIN 3.3 g/dl (3.4-5.0); ALK PHOS 53 U/L (45-117); ANION GAP 8 MMOL/L (8-16); BILIRUBIN,TOTAL 0.2 mg/dL (0.2-1); BLOOD UREA NITROGEN 11 mg/dL (7-18); CALCIUM 8.7 mg/dL (8.5-10.1); CHLORIDE 103 mmol/L (98-107); CO2 26 mmol/L (21-32); CREATININE 0.5 mg/dL (0.55-1.3); GLUCOSE,RANDOM 87 mg/dL (74-106); POTASSIUM 3.8 mmol/L (3.5-5.1); SGOT/AST 17 U/L (15-37); SGPT/ALT 21 U/L (13-61); SODIUM 136 mmol/L (136-145); TOT PROT 7.1 g/dl (6.4-8.2)
--- NOTE | 2018-10-03 12:42 | PDOC ---
Attending Attestation - Resident Resident Name: Mannie Bailey - ED Attending Attestation I have performed the following: I have examined & evaluated the patient, The case was reviewed & discussed with the resident, I agree w/resident's findings & plan, Exceptions are as noted - HPI HPI: 10/03/18 12:40 Reviewed Residents HPI - Physicial Exam PE: 10/03/18 12:40 Reviewed Residents PE - Medical Decision Making 10/03/18 12:40 33 result 12 weeks positive confirmation on ultrasound presents to the ED today with syncopal episode after getting blood drawn. For the last month patient has been experiencing first trimester nausea vomiting a few episodes a day not on any antiemetics Today while having blood drawn began to feel dizzy lightheaded had a syncopal episode no head trauma. Here in the emergency department feels better with a normal neurologic exam. Received IV fluids Reglan and Benadryl and no longer feels nauseous tolerating fluids feels a little sleepy secondary to the Benadryl Her EKG demonstrated no acute abnormalities laboratory analysis wasn't within normal limits. Case was discussed with patient's CERTIFIED HEARING INSTRUMENT DISPENSER. She'll be discharged with CERTIFIED HEARING INSTRUMENT DISPENSER follow-up on diclegis. Findings, the need for follow-up and strict return instructions discussed with patient. Heart Score/ECG Review - ECG Impressions Comment:: 10/03/18 16:35 EKG performed at 11:15 Demonstrates normal sinus rhythm no ST elevations or T-wave inversions No evidence of WPW, Brugada, prolonged QT Interpreted by me
--- NOTE | 2018-10-03 12:51 | EKG ---
Test Reason : Blood Pressure : / mmHG Vent. Rate : 077 BPM Atrial Rate : 077 BPM P-R Int : 146 ms QRS Dur : 082 ms QT Int : 404 ms P-R-T Axes : 067 070 038 degrees QTc Int : 457 ms NORMAL SINUS RHYTHM WITH SINUS ARRHYTHMIA NORMAL ECG NO PREVIOUS ECGS AVAILABLE Confirmed by EUGENE MORTENSEN, NELI ([id number]) on 10/03/2018 12:50:46 PM Referred By: Confirmed By:NELI KNIGHT MD
[2018-10-03 14:06] VITALS: BP 118/78; PULSE 72; TEMP 98.1
== END 2018-10-03 14:16 | disposition home or self-care (01) ==
LOC: JER 09:42
PROC: 3E033GC Introduction of Other Therapeutic Substance into Peripheral Vein, Percutaneous Approach (ICD-10-PCS; principal; 2018-10-03)
PROC: 3E033GC Introduction of Other Therapeutic Substance into Peripheral Vein, Percutaneous Approach (ICD-10-PCS; 2018-10-03)
DX: O26.891 Other specified pregnancy related conditions, first trimester (principal); R55 Syncope and collapse; O21.0 Mild hyperemesis gravidarum; Z3A.12 12 weeks gestation of pregnancy
CPT/HCPCS: 36415; 80053; 85025; 93005; 93010; 96374; 96375; 99284-25

== ENCOUNTER 2019-04-09 06:00 | Inpatient (IN) | payer OTHER ==
[2019-04-09] MEDS ORDERED: CITRIC ACID/SODIUM CITRATE 30 ML UNIT-DOSE CUP PO ONE (06:20)
[2019-04-09] MEDS ORDERED: ELECTROLYTE-148 SOLN 500 ML IV ONE (06:20)
[2019-04-09] MEDS ORDERED: ELECTROLYTE-148 SOLN 1,000 ML IV SCH (06:50)
[2019-04-09] MEDS ORDERED: morphine SULFATE/PF 0.5 MG/ML (2cc Syringe - QUVA) EP ONE (07:45)
[2019-04-09] MEDS ORDERED: ONDANSETRON 4 MG/2 ML VIAL IVPUSH PRN (07:45)
[2019-04-09] MEDS ORDERED: ceFAZolin SODIUM 1 GM VIAL ONE (07:55)
[2019-04-09] MEDS ORDERED: OXYTOCIN 20 UNITS in 0.9% NS 40 UNIT/2,000 ML INFUS.BAG IV ONE (08:01)
--- NOTE | 2019-04-09 08:02 | HP ---
Past Medical History - Primary Care Physician PCP:: Carolynn Jacobs - Admission Chief Complaint: 33 yrs , 39 weeks, previous c/sx2 , requests for repeat c/s History of Present Illness: pnc at 1, [facility] wt gain 20 lbs panel : 09/16/18 : B Pos, Rpr nr, Hbsag neg, Hiv neg, Rubella immune, Varicella immune, sickle neg , pap nilm, hpv neg, gc/ct neg 1 hr gtt 71 , Quantiferon neg , 03/17/19 Gbs neg, gc/ct neg Hiv neg US serial done by MFM SGA suspected , pt was monitored by BPP & NST weekly NT screen, AFP neg 03/24/19 sono sliup, vx , ant placenta, red 12.8, efw 6%tile ( efw 5'6" ) , BPP 03/26 ,MCA & UA dopplers reassuring History Source: Patient - Past Medical History LEATHER SCRAPER: No: Migraine, Seizure Cardiovascular: No: HTN Pulmonary: No: Asthma Gastrointestinal: Yes: Constipation Renal/: No: UTI ...: 4 ...Para: 2 (12/27/14 -c/sec 6'7'girl [place], G3 11/25/16 boy 8"Repeat c/s [facility] ) ...Term: 2 ...: 2 ...Spon : 1 (G2 07/2015 6 weeks ) ...Induced : 0 ...Multiple Gestation: 0 ...LMP: 07/08/18 ... Weeks Gestation by Dates: 39.2 ...EDC by Dates: 04/14/19 ...EDC by Sono: 04/14/19 (39.2 ) Heme/Onc: Yes: Anemia Infectious Disease: No: AIDS, C-Diff, Herpes Zoster, HIV, MRSA, STD's, Tuberculosis, VREF, Other Endocrine: No: Diabetes Mellitus, Hypothyroidism - Past Surgical History Past Surgical History: Yes: (12/27/14 primary c/s 11/25/2016 repeat c/ section) Hx Myomectomy: No Hx Transabdominal Cerclage: No - Smoking History Smoking history: Never smoked Have you smoked in the past 12 months: No - Alcohol/Substance Use Hx Alcohol Use: No History of Substance Use: reports: None - Social History History of Recent Travel: No Home Medications - Allergies Allergies/Adverse Reactions: Allergies Allergy/AdvReac Type Severity Reaction Status Date / Time No Known Allergies Allergy Verified 04/09/19 07:02 - Home Medications Home Medications: Ambulatory Orders Vitamins (Sjr) - 1 tab PO DAILY 12/18/18 Physical Exam - Maternity Vital Signs: Vital Signs Temperature 97.9 F 04/09/19 06:15 Pulse Rate 93 H 04/09/19 06:15 Respiratory Rate 20 04/09/19 06:15 Blood Pressure 106/67 04/09/19 06:15 O2 Sat by Pulse Oximetry (%) Constitutional: Yes: Well Nourished, No Distress Eyes: Yes: WNL HENT: Yes: WNL Neck: Yes: WNL Cardiovascular: Yes: WNL Breast(s): Yes: WNL - Abdominal Exam/OB Fundal Height: 36 Number of Fetuses: Single Presentation: Vertex Contractions: Yes Regularity: Irregular Intensity: Mild Monitor Mode: External Heart Rate (range): 140 Heart Rate Location: Midline Category: I Accelerations: Uniform Decelerations: None - Vaginal Exam/OB Vaginal Bleediing: No Dilatation (cm): close Effacement (%): unefface Amniotic Membrane Status: Intact Presentation: Vertex/Position Station: -3 - Physical Exam Musculoskeletal: Yes: WNL Extremities: Yes: WNL. No: Calf Tenderness Edema: No Integumentary: Yes: WNL, Incision (pfannensteil scar) Deep Tendon Reflex Grade: Normal +2 ...Motor Strength: WNL Psychiatric: Yes: WNL, Alert, Oriented - Labs Lab Results: Laboratory Tests 04/06/19 04/06/19 04/06/19 09:30 09:30 09:30 WBC 5.1 Hgb 11.2 Hct 33.4 Plt Count 215 PT with INR 9.90 INR 0.84 Sodium 140 Potassium 3.7 Chloride 109 H Carbon Dioxide 21 BUN 10.6 Creatinine 0.6 Random Glucose 142 H Calcium 8.1 L AST 16 ALT 22 RPR Titer 04/06/19 09:30 WBC Hgb Hct Plt Count PT with INR INR Sodium Potassium Chloride Carbon Dioxide BUN Creatinine Random Glucose Calcium AST ALT RPR Titer Nonreactive Problem List - Problems (1) with 39 completed weeks gestation Code(s): Z3A.39 - 39 WEEKS GESTATION OF (2) Previous section Code(s): Z98.891 - HISTORY OF UTERINE SCAR FROM PREVIOUS SURGERY Assessment/Plan 33 yrs , 39 weeks , previous c/s x2 requests for repeat c/s . gbs neg Plan repeat c/section
[2019-04-09] MEDS ORDERED: OXYTOCIN 10 UNITS/ML VIAL ONE (08:19)
[2019-04-09] MEDS ORDERED: MIDAZOLAM HCL 2 MG/2 ML SINGLE DOSE VIAL ONE (08:35)
[2019-04-09] MEDS ORDERED: METHYLERGONOVINE MALEATE 0.2 MG/1 ML AMP IM PRN (09:24)
[2019-04-09] MEDS ORDERED: SENNOSIDES/DOCUSATE COMBO (SENNA PLUS) TABLET (UD) PO PRN (09:24)
--- NOTE | 2019-04-09 09:40 | PN ---
Delivery - Delivery Section: Repeat, Low Flap Transverse (indication 39 weeks , SGA, previous c/section) Type of Anesthesia: Spinal EBL (cc): 500 (solo out put 200ml mone color ) Delivery, Single - Stages of Labor Date of Delivery: 04/09/19 Time of Delivery: Date Placenta Delivered: 04/09/19 Time Placenta Delivered: Placenta: Yes: Manual Removal, Uterine Exploration - Condition of Infant Pot Lining Supervisor/Obstetrics Technician Present: Yes Name: Shania Archuleta Gender: Male Weight: 6 lb 1 oz Position: Left, OT Total Hours ROM (Hrs/Mins): 2 min - 1 Minute Total Score: 9 5 Minutes Total Score: 9 - Feeding Plan Initial Plan: Elected not to breastfeed exclusively throughout hospitalization Remarks - Remarks Remarks: 33 yrs , , 39 weeks, previous c/sx2, gbs neg , admitted for repeat c/s pnc at [address] [place] [address] preop , before incision 1 gm iv ancef given intraop course uneventful
--- NOTE | 2019-04-09 09:50 | OP ---
Operative Note - Note: Operative Date: 04/09/19 Pre-Operative Diagnosis: 39 weeks, previous csx2, sga Operation: repeat lftc/s Findings: 8.21 AM, Baby Boy, Vx LOT position, 9/9 , Wt 6'1" . Turner In Dr Kathe Jauregui in OR Both tubes & ovaries normal Surgeon: Carolynn Jacobs Leaf Binner: Elie Ojeda Anesthesiologist/CLEANING STAFF SUPERVISOR: Dmitry Cunha Anesthesia: Spinal Specimens Removed: Cord segment for cord blood gas. Cord blood. Placenta Estimated Blood Loss (mls): 500 Drains, Volume Out (mls): 200 (solo, mone color ) Fluid Volume Replaced (mls): 1,100 (iv ancef 1 gm ivpb ) Operative Report Dictated: Yes
[2019-04-09] MEDS: OXYTOCIN 20 UNITS in 0.9% NS 20 UNIT/1,000 ML INFUS.BAG IV SCH (10:45)
[2019-04-09] MEDS: IBUPROFEN 800 MG/8 ML IJ IVPB PRN ×2 (10:50→23:35)
--- NOTE | 2019-04-09 14:06 | OP ---
DATE OF OPERATION: 04/09/2019 PREOPERATIVE DIAGNOSES: At 39 weeks, previous section x2, and small for gestational age. OPERATION DONE: Repeat low-flap transverse section. SURGEON: Carolynn Jacobs MD LIGHT ARMORED VEHICLE OFFICER SURGEON: SHANNON Vogel ANESTHESIOLOGIST: Dmitry Cunha MD CAREER TRANSITION SPECIALIST: Shania Archuleta MD ANESTHESIA: Spinal. FINDINGS: This is a 33-year-old, 4, para 2-0-1-2, at 39-2/7 weeks, not in labor, requests for repeat section. SGA suspected antenatally , serial f/u with BPP/NST & Doppler flow & growth was done by [facility] Baby boy, 9 and 9. The weight of the baby was 6 pounds 1 ounce. PROCEDURE: The patient had, preoperatively, a Toscano catheter placed. Abdomen was shaved, prepped. She was taken to the operating room table. SCD stockings were placed. Spinal anesthesia was given. She was placed in supine position. Abdomen was painted and draped in the usual manner. Then Pfannenstiel incision was made through the previous scar, skin and subcutaneous tissue, scar tissue. Anterior rectus was incised transversely. Bleeding points were clamped and cauterized. Rectus muscle was from the rectus sheath. Parietal peritoneum was opened vertically. Low flap parietal peritoneum was incised transversely. Lower uterine segment was incised transversely. Baby boy was delivered from LOT position at 8 :21 a.m. Baby's was 9 and 9. Immediate suction, oral and nasal, was done. Cord was clamped, cut and cord blood was collected. Before that, cord segment was sent for cord blood gases. The amniotic fluid was large amount and clear. Placenta was removed completely with the membranes and then the uterine cavity was cleaned with lap pad . Uterine incision was closed in 2 layers, first layer was a continuous locking with a Biosyn 0 suture, second layer was a continuous intermittent locking with a Biosyn 0 suture. Hemostasis was checked. The bladder peritoneum also was closed with a 2-0 Biosyn suture. Both tubes and ovaries were normal. Hemostasis was checked. Irrigation was done. Then the closure of the abdomen was done. Parietal peritoneum was closed with a Vicryl 0 suture. Muscles were approximated together with a Vicryl 0 interrupted suture, and then underneath the rectus sheath flap bleeding was checked. Then the anterior rectus sheath was closed with a Vicryl 0 suture continuous suture. hemostasis was verified. Skin was mobilized from underneath scar and some interrupted sutures were taken in the subcutaneous tissue. The skin was approximated with jf. Hemostasis was checked prior to that. Pressure dressing was given. Blood clots were removed from the vagina. Patient tolerated procedure well. She was transferred to the recovery room in stable condition. Estimated blood loss was 500 mL. Intraoperative urine output was 200 mL, it was mone color. She received 1 g of IV Ancef prior to the incision. Jovon [id number] MTDD
[2019-04-09] MEDS: CEFAZOLIN 1 GM/D5W 1 GM/50 ML BAG IVPB SCH (15:06)
[2019-04-10] MEDS: CEFAZOLIN 1 GM/D5W 1 GM/50 ML BAG IVPB SCH ×2 (00:35→08:20)
--- NOTE | 2019-04-10 07:29 | PN ---
Progress Note (short form) - Note Progress Note: pod 1 s/p c/s, has mild cramps Last Vital Signs Temp Pulse Resp BP Pulse Ox 98.0 F 69 20 104/66 98 04/10/19 05:00 04/10/19 05:00 04/10/19 06:00 04/10/19 05:00 04/09/19 10:30 abdomen soft, no distension, no cva uterus firm lochia mild no calf tenderness plan cbc ambulate advance diet pain mangement
[2019-04-10 07:50] LABS: BASO % 0.2 % (0-2.0); EOS % 1.1 % (0-4.5); HEMATOCRIT 33.7 % (32.4-45.2); HEMOGLOBIN 11.5 GM/dL (10.7-15.3); LYMPH % 15.1 % (8-40); MCH 30.3 pg (25.7-33.7); MEAN CELL VOLUME 89.1 fl (80-96); MEAN PLT VOLUME 8.6 fl (7.5-11.1); NEUT % 78.6 % (42.8-82.8); PLATELET COUNT 201 K/MM3 (134-434); RBC 3.78 M/mm3 (3.60-5.2); RDW 16.6 % (11.6-15.6); WHITE BLOOD COUNT 7.7 K/mm3 (4.0-10.0)
[2019-04-10] MEDS ORDERED: BISACODYL 10 MG SUPP.RECT RC PRN (09:24)
[2019-04-10] MEDS: OXYTOCIN 20 UNITS in 0.9% NS 20 UNIT/1,000 ML INFUS.BAG IV SCH (09:30)
[2019-04-10] MEDS: ENOXAPARIN NA (PORCINE) 40 MG/0.4 ML DISP.SYRIN SQ SCH (09:39)
[2019-04-10] MEDS: PRENATAL VITAMINS W/ FOLIC ACID TABLET (FP) PO SCH (09:39)
--- NOTE | 2019-04-10 11:11 | PN ---
Progress Note (short form) - Note Progress Note: Anesthesiology Post-op 33 y.o. woman POD#1 s/p C/S under spinal anesthesia. She c/o some pain at surgical site but states that pain meds are helping. She denies h/a, is able to move legs. Pruritus, n/v are resolved. VSS. 33 y.o. woman with stable post-operative course. Continue management as per primary team.
--- NOTE | 2019-04-10 13:29 | DS ---
Physical Exam-HAND POLISHER Vital Signs: Vital Signs Temperature 98.0 F 04/10/19 05:00 Pulse Rate 69 04/10/19 05:00 Respiratory Rate 18 04/10/19 09:00 Blood Pressure 104/66 04/10/19 05:00 O2 Sat by Pulse Oximetry (%) 98 04/09/19 10:30 Selected Entries 04/12/19 21:31 Temperature 97.9 F Pulse Rate 106 H Blood Pressure 104/75 Constitutional: Yes: Well Nourished Eyes: Yes: WNL HENT: Yes: WNL Neck: Yes: WNL Cardiovascular: Yes: WNL Respiratory: Yes: WNL Gastrointestinal: Yes: WNL, Normal Bowel Sounds Renal/: Yes: WNL ....Post : Yes: Uterus firm, Uterus non-tender, Moderate lochia rubra Breast(s): Yes: WNL, Other (BF) Musculoskeletal: Yes: WNL Extremities: Yes: WNL. No: Calf Tenderness Edema: No Integumentary: Yes: WNL Wound/Incision: Yes: Clean/Dry, Well Approximated, [place] Intact, Steri Strips , Open to air, Jf Removed (on 04/13/19). No: Reddened, Bleeding, Excoriated Neurological: Yes: WNL, Alert, Oriented ...Motor Strength: WNL Psychiatric: Yes: WNL, Alert, Oriented Labs: CBC, BMP 04/10/19 07:00 Laboratory Tests 04/12/19 07:30 WBC 5.2 RBC 3.43 L Hgb 10.4 L Hct 30.6 L MCV 89.1 MCH 30.3 MCHC 34.0 Plt Count 219 MPV 8.5 Absolute Neuts (auto) 3.0 Neutrophils % 57.2 D Lymphocytes % 32.4 D Monocytes % 7.2 Eosinophils % 2.9 D Basophils % 0.3 Delivery - Delivery Section: Repeat, Low Flap Transverse (indication 39 weeks , SGA, previous c/section) Type of Anesthesia: Spinal Episiotomy/Laceration: None EBL (cc): 500 Delivery, Single - Stages of Labor Date of Delivery: 04/09/19 Time of Delivery: 08:21 Time Placenta Delivered: 08:22 Placenta: Yes: Manual Removal, Uterine Exploration - Condition of Infant Musculoskeletal Physiotherapist/Receptionist Telephone Operator Present: Yes Name: Shania Archuleta Infant Gender: Male Weight: 6 lb 1 oz Position: Left, OT Total Hours ROM (Hrs/Mins): 0/2 - 1 Minute Total Score: 9 5 Minutes Total Score: 9 - Feeding Plan Initial Plan: Elected not to breastfeed exclusively throughout hospitalization Remarks - Remarks Remarks: 33 yrs , , 39 weeks, previous c/sx2, gbs neg , admitted for repeat c/s pnc at [address] [place] [address] preop , before incision 1 gm iv ancef given intraop course uneventful post op course uneventful 04/13/19 c/o pain sdcale 4/10 voiding without difficulty bm done jf removed , wound healing satisfactory post op, pp instructions given discharge 04/13/19 Discharge Summary Reason For Visit: ADMIT-C/S - Instructions Diet, Activity, Other Instructions: Post Instructions DIET: Continue good diet high in protein, calcium, and iron rich foods. Drink at least eight (8) glasses of water daily in addition to other fluids. ___ Regular diet MEDICATIONS: Continue vitamins and iron as previously directed. Motrin and Tylenol may be taken for minor discomfort. ACTIVITY: Mild to moderate exercise may be started in two (2) weeks. Take frequent rest periods. Resume normal activity after six (6) week check up. WOUND CARE OF OPERATIVE SITE: Continue use of perineal bottle until vaginal discharge stops. Keep area clean. Shower daily. Keep abdominal wound dry. Report any drainage or redness to physician. Tub baths, tampons and douches are not permitted for [address] Breast feeding & or Bottle feeding BREAST CARE: (For those that are not ): If engorgement occurs: Wear tight fitting bra. Take Tylenol or Motrin for pain. Apply cold packs (ice in bags to each breast ) FAMILY PLANNING: There are many control alternatives to pursue and they should be discussed at your first office visit. You may resume sexual activity after your six (6) week check up. (Remember, breast feeding is not a contraceptive) NEXT PHYSICIAN APPOINTMENT: Be certain to call for a one (1) week appointment, unless otherwise directed. rtc 1 week foer wound check Call Clinic or got to Emergency Dept if you have any of the following: Heavy vaginal bleeding Painful urination Leg pain Unusual odor noted to vaginal bleeding High fever Red streaking noted on breast Referrals: Carolynn Jacobs MD [Staff Physician] - Disposition: HOME - Home Medications Comprehensive Discharge Medication List: Ambulatory Orders Vitamins (Sjr) - 1 tab PO DAILY 12/18/18 Acetaminophen [Tylenol .Regular Strength -] 500 mg PO Q4H PRN #30 tablet Ferrous Sulfate [Feosol] 325 mg PO BIDWM #60 tab 04/10/19 Ibuprofen [Motrin -] 600 mg PO Q4H PRN #30 tablet 04/10/19 Vitamins (Sjr) - 1 tab PO DAILY tablet 04/10/19 Sennosides/Docusate Sodium [Pericolace -] 2 tablet PO HS PRN #30 tablet
[2019-04-10] MEDS: oxyCODONE HCL 5 MG TABLET PO PRN ×3 (13:30→22:16)
[2019-04-10] MEDS: ACETAMINOPHEN 325 MG TABLET (FP) PO PRN ×3 (13:31→22:16)
[2019-04-10] MEDS: SIMETHICONE 80 MG TAB.CHEW (FP) PO PRN (22:17)
[2019-04-10] MEDS: FERROUS SO4 325 MG TABLET (FP) PO SCH (22:17)
[2019-04-11] MEDS: ACETAMINOPHEN 325 MG TABLET (FP) PO PRN ×4 (03:03→20:51)
[2019-04-11] MEDS: SIMETHICONE 80 MG TAB.CHEW (FP) PO PRN ×4 (03:03→20:51)
[2019-04-11] MEDS: oxyCODONE HCL 5 MG TABLET PO PRN ×3 (03:03→20:52)
[2019-04-11] MEDS: FERROUS SO4 325 MG TABLET (FP) PO SCH ×2 (07:27→17:42)
--- NOTE | 2019-04-11 08:20 | PN ---
Post Progress Note - Subjective Subjective: Ambulating, tolerating PO, lochia decreased, passing flatus, breast and bottle feeding Post Day: 2 Type of Delivery: Repeat C/S Vital Signs: Vital Signs Temperature 99.4 F 04/11/19 07:29 Pulse Rate 62 04/11/19 07:29 Respiratory Rate 18 04/11/19 07:29 Blood Pressure 97/64 04/11/19 07:29 O2 Sat by Pulse Oximetry (%) 98 04/09/19 10:30 Breast Exam: Yes: Other (deferred) Uterus: Yes: Fundus Firm Incision: Yes: [place] intact Abdomen/GI: Yes: Abdomen soft Lochia, amount: Moderate Extremities: Yes: Calf tenderness Activity: Ambulating - Labs Labs: CBC WBC 7.7 K/mm3 (4.0-10.0) 04/10/19 07:00 RBC 3.78 M/mm3 (3.60-5.2) 04/10/19 07:00 Hgb 11.5 GM/dL (10.7-15.3) 04/10/19 07:00 Hct 33.7 % (32.4-45.2) 04/10/19 07:00 MCV 89.1 fl (80-96) 04/10/19 07:00 MCH 30.3 pg (25.7-33.7) 04/10/19 07:00 MCHC 34.0 g/dl (32.0-36.0) 04/10/19 07:00 RDW 16.6 % (11.6-15.6) H 04/10/19 07:00 Plt Count 201 K/MM3 (134-434) 04/10/19 07:00 MPV 8.6 fl (7.5-11.1) 04/10/19 07:00 Absolute Neuts (auto) 6.1 K/mm3 (1.5-8.0) 04/10/19 07:00 Neutrophils % 78.6 % (42.8-82.8) D 04/10/19 07:00 Lymphocytes % 15.1 % (8-40) D 04/10/19 07:00 Monocytes % 5.0 % (3.8-10.2) 04/10/19 07:00 Eosinophils % 1.1 % (0-4.5) 04/10/19 07:00 Basophils % 0.2 % (0-2.0) 04/10/19 07:00 Nucleated RBC % 0 % (0-0) 04/10/19 07:00 Assessment/Plan POD # 2 in stable condition, calf tenderness. -Continue PP care -LE dopplers -Anticipate D/C home tomorrow
[2019-04-11] MEDS: PRENATAL VITAMINS W/ FOLIC ACID TABLET (FP) PO SCH (09:39)
[2019-04-11] MEDS: ENOXAPARIN NA (PORCINE) 40 MG/0.4 ML DISP.SYRIN SQ SCH (09:39)
[2019-04-11] MEDS: IBUPROFEN 600 MG TABLET (FP) PO PRN ×2 (14:03→23:41)
[2019-04-12] MEDS: ACETAMINOPHEN 325 MG TABLET (FP) PO PRN ×3 (01:12→19:47)
[2019-04-12] MEDS: SIMETHICONE 80 MG TAB.CHEW (FP) PO PRN ×3 (01:12→19:46)
[2019-04-12] MEDS: oxyCODONE HCL 5 MG TABLET PO PRN (01:13)
[2019-04-12] MEDS: FERROUS SO4 325 MG TABLET (FP) PO SCH ×2 (08:27→17:24)
[2019-04-12 08:34] LABS: BASO % 0.3 % (0-2.0); EOS % 2.9 % (0-4.5); HEMATOCRIT 30.6 % (32.4-45.2); HEMOGLOBIN 10.4 GM/dL (10.7-15.3); LYMPH % 32.4 % (8-40); MCH 30.3 pg (25.7-33.7); MEAN CELL VOLUME 89.1 fl (80-96); MEAN PLT VOLUME 8.5 fl (7.5-11.1); MONO % 7.2 % (3.8-10.2); NEUT % 57.2 % (42.8-82.8); PLATELET COUNT 219 K/MM3 (134-434); RBC 3.43 M/mm3 (3.60-5.2); WHITE BLOOD COUNT 5.2 K/mm3 (4.0-10.0)
--- NOTE | 2019-04-12 09:40 | PN ---
Post Progress Note - Subjective Subjective: patient is doing well and desires to stay an additional day to see her delivery attending Post Day: 3 Type of Delivery: Repeat C/S Vital Signs: Vital Signs Temperature 97.9 F 04/12/19 08:26 Pulse Rate 105 H 04/12/19 08:26 Respiratory Rate 18 04/12/19 08:26 Blood Pressure 96/57 L 04/12/19 08:26 O2 Sat by Pulse Oximetry (%) 98 04/09/19 10:30 Breast Exam: Yes: Other (deferred) Uterus: Yes: Fundus Firm Incision: Yes: [place] intact Abdomen/GI: Yes: Abdomen soft Lochia: Yes: [place] Lochia, amount: Moderate Extremities: Yes: Calves non-tender Perineum: Yes: Intact Activity: Ambulating - Labs Labs: CBC WBC 5.2 K/mm3 (4.0-10.0) 04/12/19 07:30 RBC 3.43 M/mm3 (3.60-5.2) L 04/12/19 07:30 Hgb 10.4 GM/dL (10.7-15.3) L 04/12/19 07:30 Hct 30.6 % (32.4-45.2) L 04/12/19 07:30 MCV 89.1 fl (80-96) 04/12/19 07:30 MCH 30.3 pg (25.7-33.7) 04/12/19 07:30 MCHC 34.0 g/dl (32.0-36.0) 04/12/19 07:30 RDW 17.0 % (11.6-15.6) H 04/12/19 07:30 Plt Count 219 K/MM3 (134-434) 04/12/19 07:30 MPV 8.5 fl (7.5-11.1) 04/12/19 07:30 Absolute Neuts (auto) 3.0 K/mm3 (1.5-8.0) 04/12/19 07:30 Neutrophils % 57.2 % (42.8-82.8) D 04/12/19 07:30 Lymphocytes % 32.4 % (8-40) D 04/12/19 07:30 Monocytes % 7.2 % (3.8-10.2) 04/12/19 07:30 Eosinophils % 2.9 % (0-4.5) D 04/12/19 07:30 Basophils % 0.3 % (0-2.0) 04/12/19 07:30 Nucleated RBC % 0 % (0-0) 04/12/19 07:30 Assessment/Plan POD # 3 in stable condition. Patient is cleared for discharge but desires to stay extra day -Continue PP care -Anticipate D/C home tomorrow after delivering attending evaluation
[2019-04-12] MEDS: IBUPROFEN 600 MG TABLET (FP) PO PRN ×2 (09:50→19:46)
[2019-04-12] MEDS: ENOXAPARIN NA (PORCINE) 40 MG/0.4 ML DISP.SYRIN SQ SCH (09:50)
[2019-04-12] MEDS: PRENATAL VITAMINS W/ FOLIC ACID TABLET (FP) PO SCH (09:51)
[2019-04-13] MEDS: ACETAMINOPHEN 325 MG TABLET (FP) PO PRN ×2 (06:21→10:09)
[2019-04-13] MEDS: SIMETHICONE 80 MG TAB.CHEW (FP) PO PRN ×2 (06:21→10:10)
[2019-04-13] MEDS: IBUPROFEN 600 MG TABLET (FP) PO PRN (06:21)
[2019-04-13] MEDS ORDERED: IBUPROFEN 200 MG TABLET PO PRN (10:07)
[2019-04-13] MEDS: PRENATAL VITAMINS W/ FOLIC ACID TABLET (FP) PO SCH (10:10)
[2019-04-13] MEDS: ENOXAPARIN NA (PORCINE) 40 MG/0.4 ML DISP.SYRIN SQ SCH (10:10)
[2019-04-13] MEDS: FERROUS SO4 325 MG TABLET (FP) PO SCH (10:10)
--- NOTE | 2019-04-13 10:40 | PN ---
Progress Note (short form) - Note Progress Note: pod #4, s/p repeat c/section note added to discharge summary jf removed pt v/s stable discharge today Problem List - Problems (1) with 39 completed weeks gestation Code(s): Z3A.39 - 39 WEEKS GESTATION OF (2) Previous section Code(s): Z98.891 - HISTORY OF UTERINE SCAR FROM PREVIOUS SURGERY
[2019-04-13 12:04] VITALS: BP 107/75; PULSE 94; TEMP 98.6
--- NOTE | 2019-04-15 16:37 | PATH ---
Surgical Pathology Report Patient Name: SRAVANI ERIC [facility]. Rec. #: [id number] /Age/Gender: 1985 (Age: 33) / F Account: [id number] Location: [facility] OBS/A CLASS [place] Taken: 04/09/2019 Received: 04/09/2019 Reported: 04/15/2019 Physicians: Carolynn Jacobs M.D. Specimen(s) Received PLACENTA Clinical History at 39.2 wks SGA vs IUGR Final Diagnosis PLACENTA, : MATURE THIRD TRIMESTER PLACENTA (WEIGHT: 423 G) WITH TRIVESSEL UMBILICAL CORD AND UNREMARKABLE PLACENTAL MEMBRANES. Electronically Signed Hawa Boucher M.D. Microscopic Description 012 at 39.2 weeks, SGA vs IUGR x2 Gross Description The specimen is received fresh labeled placenta and is a 423 gram, 16 x16 x 2.1cm. placenta with attached membranes and umbilical cord. The attached membranes are glistening, translucent, and insert marginally. The umbilical cord measures 9 cm. in length and averages 1.5 cm. in diameter. The cord inserts centrally, 6 centimeter to the nearest margin. No true knots or strictures are identified. Cut surface of the umbilical cord reveals 3 vessels. Sectioning reveals red-brown, spongy parenchyma. No lesions are identified. Drawbench [employer] Helper sections are submitted in three cassettes as follows: 1- membrane rolls and umbilical cord; 2-3- full thickness sections of placenta.
== END 2019-04-13 13:12 | disposition home or self-care (01) | DRG 540 ==
LOC: JLDR 06:00 → J3W 11:05
PROVIDERS: ADMIT Obstetrics & Gynecology; ATTEND Obstetrics & Gynecology
PROC: 10D00Z1 Extraction of Products of Conception, Low, Open Approach (ICD-10-PCS; principal; 2019-04-09)
DX: O34.211 Maternal care for low transverse scar from previous cesarean delivery (principal); N85.8 Other specified noninflammatory disorders of uterus; Z3A.39 39 weeks gestation of pregnancy; Z37.0 Single live birth
CPT/HCPCS: 36415; 36600; 82803; 85025; 88307-TC; 93970-TC